=== PATIENT | female | born 1970 | race Caucasian/White ===

== ENCOUNTER → 2016-12-26 | Outpatient (CLI) | payer BC ==
[~2016-12-26] MED LIST: ADVAIR 250/28 DISKUS IH; ADVAIR DISKUS1 DS1 IH; AVELOX400 MG PO; BCP TD; CALCIUM 600600 M2 PO; CELEXA40 MG PO; CITRACAL + D CA1 TAB PO; D-BIOTIN10 MG PO; DARVOCET N 101 UDTAB PO; DIUREX WATER PI1 TAB PO; DULERA1 AR1 IH; FERATE27 MG PO; LIORESAL 1010 MG/TAB PO; LIORESAL20 MG PO; LYRICA 100MG C100 M1 PO; LYRICA100 MG PO; MOTRIN 200200 MG/TAB PO; MULTIPLE VITAMI1 CAP PO; MYCOSTATIN100000 U/M PO; NUCYNTA50 MG PO; Oxycontin PO; PERCOCET 325 MG1 TA2 PO; PREDNISONE; PREDNISONE20 MG PO; PREGABALIN PO; PRILOSEC 20MG20 MG PO; PRILOTC PO; PROAIR HFA0.09 MG/AC IH; PROPOXYPHENE PO; PROVENTIL0.09 MG/A1 IH; PROZAC 20MG20 MG PO; PROZAC40 MG; RECLIPSEN 0.151 TAB PO; ROBAXIN 75750 MG/TAB PO; RT ADVAIR 128 DISKUS IH; RT ADVAIR 228 DISKUS IH; SARAFEM15 MG PO; SAVELLA25 MG PO; SKELAXIN 800MG800 MG PO; STOOL SOFTENER100 M2 PO; ULTRACET TABL1 UDTAB PO; ULTRAM 50MG TAB50 MG PO; VENTOLIN0.09 MG IH; VITAMIN B-1000 MCG/T PO; VITAMIN B11000 MCG/M IM; VITAMIN D32000 IU PO; VITAMIN K100 MCG PO; ZOFRAN8 MG PO
== END ==
LOC: MC.RAD 15:13
DX: Z12.31 Encounter for screening mammogram for malignant neoplasm of breast (principal)

== ENCOUNTER → 2020-12-22 | Outpatient (CLI) | payer BC ==
[~2020-12-22] MED LIST changes: +BREO IH; +NUCYNTA ER50 MG PO; +PHENERGAN 25 TA25 MG PO; +TYLENOL 325MG325 MG PO; +VALIUM 2MG T2 MG/TAB PO
== END ==
LOC: COL.RAD 07:28
DX: R11.0 Nausea (principal); Z98.890 Other specified postprocedural states; Z98.84 Bariatric surgery status

== ENCOUNTER → 2021-09-06 | Outpatient (CLI) | payer BC | LOC: MC.RAD 08:40 | DX: Z12.31 Encounter for screening mammogram for malignant neoplasm of breast (principal) ==

== ENCOUNTER → 2021-09-09 | Outpatient (CLI) | payer BC | LOC: COL.RAD 08:17 | DX: K51.019 Ulcerative (chronic) pancolitis with unspecified complications (principal); J18.9 Pneumonia, unspecified organism; R91.8 Other nonspecific abnormal finding of lung field | CPT/HCPCS: A9585 ==

== ENCOUNTER 2021-11-17 07:45 | Outpatient (RCR) | payer BC ==
[2021-11-11 15:53] VITALS: BP 114/67; PULSE 75; TEMP 98.6
[2021-11-14 08:00] VITALS: BP 97/63; PULSE 87; TEMP 98.5
[~2021-11-17] VITALS: Ht 162.6 cm; Wt 75.1 kg
[~2021-11-17 07:45] MED LIST changes: +ZANAFLEX CAPSULE4 MG PO
[2021-11-17 07:55] VITALS: BP 102/65; PULSE 93; TEMP 97.5
== END 2021-11-17 09:25 | disposition still patient (30) ==
LOC: EUO 07:45
DX: D50.9 Iron deficiency anemia, unspecified (principal)
CPT/HCPCS: J1756

== ENCOUNTER 2022-02-10 07:30 | Outpatient (RCR) | payer BC ==
[2022-02-06 13:00] VITALS: BP 120/67; PULSE 82; TEMP 98.4
[2022-02-08 08:00] VITALS: BP 110/71; PULSE 90; TEMP 98.5
[~2022-02-10] VITALS: Ht 162.6 cm; Wt 68.0 kg
[~2022-02-10 07:30] MED LIST changes: +PREDFORTE5ML OD
[2022-02-10 07:39] VITALS: BP 110/74; PULSE 84; TEMP 98.4
--- NOTE | 2022-02-10 08:05 | NUR ---
Pt tolerated infusion without issue. INT DC'd with catheter intact. She ambulates out of dept with steady gait.
== END 2022-02-10 08:30 | disposition home or self-care (01) ==
LOC: EUO 07:30
DX: D50.9 Iron deficiency anemia, unspecified (principal)
CPT/HCPCS: J1756

== ENCOUNTER → 2022-09-21 | Outpatient (CLI) | payer BC | LOC: MC.RAD 10:42 | DX: N63.11 Unspecified lump in the right breast, upper outer quadrant (principal); N63.24 Unspecified lump in the left breast, lower inner quadrant ==

== ENCOUNTER → 2023-08-07 | Outpatient (CLI) | payer BC | LOC: COL.VAS 09:09 | DX: I51.7 Cardiomegaly (principal); C50.411 Malignant neoplasm of upper-outer quadrant of right female breast ==